=== PATIENT | male | born 1965 | race Caucasian/White ===

== ENCOUNTER 2017-12-17 11:04 | Emergency (ER) | payer BC ==
[~2017-12-17] VITALS: Ht 177.8 cm; Wt 93.8 kg
[~2017-12-17 11:04] MED LIST: NAPR-232 PO
[2017-12-17 11:40] LABS: BASOPHILS % (AUTO) 0.6 % (0-1); EOSINOPHILS # (AUTO) 0.3 X10'3 (0-0.9); EOSINOPHILS % (AUTO) 5.8 % (0-6); HEMATOCRIT 47.9 % (42.0-52.0); HEMOGLOBIN 16.4 g/dl (14.0-17.9); LYMPHOCYTES # (AUTO) 2.2 X10'3 (1.1-4.8); LYMPHOCYTES % (AUTO) 44.7 % (21-51); MEAN CORPUSCULAR HEMOGLOBIN 32.3 PG (27.0-31.0); MEAN CORPUSCULAR HGB CONC 34.3 % (33.0-36.5); MEAN CORPUSCULAR VOLUME 94.3 FL (78-98); MEAN PLATELET VOLUME 7.7 FL (7.4-10.4); MONOCYTES # (AUTO) 0.5 X10'3 (0-0.9); MONOCYTES % (AUTO) 9.5 % (2-12); NEUTROPHILS % (AUTO) 39.4 % (42-75); PLATELET COUNT 232 X10'3 (140-440); RED BLOOD COUNT 5.08 X10'6 (4.70-6.10); RED CELL DISTRIBUTION WIDTH 12.1 % (11.5-14.5)
[2017-12-17 11:57] LABS: PARTIAL THROMBOPLASTIN TIME 22 SECONDS (22-32); PROTHROMBIN TIME 10.6 SECONDS (9.0-12.0)
[2017-12-17 12:06] LABS: ALANINE AMINOTRANSFERASE 50 U/L (12-78); ALBUMIN 3.5 G/DL (3.4-5.0); ALBUMIN/GLOBULIN RATIO 1.2 (1.1-1.5); ALKALINE PHOSPHATASE 32 IU/L (46-116); ANION GAP 8 (8-16); ASPARTATE AMINO TRANSFERASE 28 U/L (10-37); BILIRUBIN,TOTAL 0.5 MG/DL (0.1-1.0); BLOOD UREA NITROGEN 16 MG/DL (7-18); BUN/CREATININE RATIO 13.1 (5.4-32.0); CALCIUM 8.9 MG/DL (8.5-10.1); CHLORIDE 106 MMOL/L (99-107); CREATININE 1.22 MG/DL (0.60-1.10); GLUCOSE 90 MG/DL (70-104); POTASSIUM 4.1 MMOL/L (3.5-5.1); SODIUM 141 MMOL/L (135-145); TOTAL CARBON DIOXIDE 27.5 MMOL/L (24-32); TOTAL PROTEIN 6.4 G/DL (6.4-8.2); eGFR 62 ML/MIN
[2017-12-17 13:01] VITALS: BP 126/65
== END 2017-12-17 13:02 | disposition home or self-care (01) ==
LOC: ER 11:04
DX: R07.89 Other chest pain (principal)
CPT/HCPCS: 36415; 71045; 80053; 84484; 85025; 85610; 85730; 93005; 99285

== ENCOUNTER 2018-06-18 05:12 | Emergency (ER) | payer BC ==
[~2018-06-18] VITALS: Ht 177.8 cm; Wt 90.9 kg
[2018-06-18 06:21] VITALS: BP 134/73
[2018-06-18] MEDS ORDERED: triamcinolone acetonide 40mg/ml inj IJ ONE (06:25)
[2018-06-18] MEDS ORDERED: ibuprofen tablet 400 MG TABLET PO ONE (06:25)
[2018-06-18] MEDS ORDERED: acetaminophen 325mg tablet PO ONE (06:25)
== END 2018-06-18 07:23 | disposition home or self-care (01) ==
LOC: ER 05:12
DX: M75.41 Impingement syndrome of right shoulder (principal); M75.51 Bursitis of right shoulder
CPT/HCPCS: 20610; 99284; J3301

== ENCOUNTER 2018-08-06 05:13 | Emergency (ER) | payer BC ==
[~2018-08-06] VITALS: Ht 177.8 cm; Wt 90.9 kg
[2018-08-06] MEDS ORDERED: aspirin 81mg tab.chew PO ONE (05:25)
[2018-08-06 05:49] LABS: BASOPHILS % (AUTO) 0.7 % (0-1); EOSINOPHILS # (AUTO) 0.2 X10'3 (0-0.9); EOSINOPHILS % (AUTO) 3.2 % (0-6); HEMATOCRIT 47.5 % (42.0-52.0); HEMOGLOBIN 16.5 g/dl (14.0-17.9); LYMPHOCYTES # (AUTO) 2.5 X10'3 (1.1-4.8); LYMPHOCYTES % (AUTO) 49.1 % (21-51); MEAN CORPUSCULAR HEMOGLOBIN 33.5 PG (27.0-31.0); MEAN CORPUSCULAR HGB CONC 34.8 % (33.0-36.5); MEAN CORPUSCULAR VOLUME 96.3 FL (78-98); MEAN PLATELET VOLUME 7.9 FL (7.4-10.4); MONOCYTES # (AUTO) 0.4 X10'3 (0-0.9); MONOCYTES % (AUTO) 8.4 % (2-12); NEUTROPHILS % (AUTO) 38.6 % (42-75); PLATELET COUNT 236 X10'3 (140-440); RED BLOOD COUNT 4.93 X10'6 (4.70-6.10); RED CELL DISTRIBUTION WIDTH 12.6 % (11.5-14.5); WHITE BLOOD COUNT 5.1 X10'3 (4.5-11.0)
[2018-08-06 06:00] LABS: ALANINE AMINOTRANSFERASE 64 U/L (12-78); ALBUMIN 3.5 G/DL (3.4-5.0); ALBUMIN/GLOBULIN RATIO 1.1 (1.1-1.5); ALKALINE PHOSPHATASE 29 IU/L (46-116); ANION GAP 9 (8-16); ASPARTATE AMINO TRANSFERASE 38 U/L (10-37); BILIRUBIN,TOTAL 0.5 MG/DL (0.1-1.0); BLOOD UREA NITROGEN 19 MG/DL (7-18); BUN/CREATININE RATIO 13.1 (5.4-32.0); CALCIUM 8.7 MG/DL (8.5-10.1); CHLORIDE 103 MMOL/L (99-107); CREATININE 1.45 MG/DL (0.60-1.10); GLUCOSE 88 MG/DL (70-104); SODIUM 138 MMOL/L (135-145); TOTAL CARBON DIOXIDE 26.4 MMOL/L (24-32); TOTAL PROTEIN 6.7 G/DL (6.4-8.2); eGFR 51 ML/MIN
[2018-08-06 06:06] LABS: D-DIMER 0.28 MG/L FEU (0-0.50); PROTHROMBIN TIME 10.5 SECONDS (9.0-12.0)
[2018-08-06 06:07] LABS: MAGNESIUM 1.6 MG/DL (1.5-2.4)
[2018-08-06 06:22] VITALS: BP 104/52
== END 2018-08-06 06:27 | disposition home or self-care (01) ==
LOC: ER 05:13
DX: R07.9 Chest pain, unspecified (principal); R06.02 Shortness of breath; R42 Dizziness and giddiness; R61 Generalized hyperhidrosis
CPT/HCPCS: 36415; 71045; 80053; 83735; 83880; 84484; 85025; 85379; 85610; 93005; 99285

== ENCOUNTER 2019-01-18 13:52 | Emergency (ER) | payer BC ==
[~2019-01-18] VITALS: Ht 177.8 cm; Wt 90.9 kg
[2019-01-18 14:06] VITALS: BP 115/72
--- NOTE | 2019-01-18 15:04 | NUR ---
Attempted to irrigate ear with water/hydrogen peroxide. Unsuccessful at relieving impaction. PA aware.
== END 2019-01-18 15:05 | disposition home or self-care (01) ==
LOC: ER 13:52
DX: H61.22 Impacted cerumen, left ear (principal); Z79.899 Other long term (current) drug therapy
CPT/HCPCS: 69209; 99282

== ENCOUNTER 2019-03-30 06:42 | Emergency (ER) | payer BC, MEDICARE ==
[~2019-03-30] VITALS: Ht 177.8 cm; Wt 93.4 kg
[2019-03-30 06:48] VITALS: BP 121/80
[2019-03-30] MEDS ORDERED: ketorolac trometh inj. 60 MG/2 ML VIAL IM ONE (07:10)
== END 2019-03-30 07:31 | disposition home or self-care (01) ==
LOC: ER 06:43
DX: M25.511 Pain in right shoulder (principal); Z79.899 Other long term (current) drug therapy; X58.XXXA Exposure to other specified factors, initial encounter; Y93.89 Activity, other specified; Y92.89 Other specified places as the place of occurrence of the external cause; Y99.8 Other external cause status
CPT/HCPCS: 96372; 99283; J1885

== ENCOUNTER 2023-06-25 18:54 | Inpatient (IN) | payer MEDICAID ==
[~2023-06-25] VITALS: Ht 177.8 cm; Wt 76.8 kg
[2023-06-26 10:15] VITALS: BP 101/62; PULSE 73; RESP 17; TEMP 98.5; O2SAT 97
[2023-06-26] MEDS ORDERED: magnesium hydroxide 30ml (MOM) UD suspension PO PRN (10:30)
[2023-06-26] MEDS ORDERED: acetaminophen 325mg tablet PO PRN ×2 (10:30)
[2023-06-26] MEDS ORDERED: mag hydrox/Alum hydrox/simeth 30ml oral suspension PO PRN (10:30)
[2023-06-26] MEDS ORDERED: NICOTINE POLACRILEX 2 MG LOZENGE BC PRN (10:30)
[2023-06-26] MEDS ORDERED: loperamide 2mg capsule PO PRN (10:30)
[2023-06-26] MEDS ORDERED: METO-395 PO (16:23)
[2023-06-26] MEDS ORDERED: FOLI1TAB27 PO (16:23)
[2023-06-26] MEDS ORDERED: AMI200T PO (16:23)
[2023-06-26] MEDS ORDERED: FURO40TA4 PO (16:23)
[2023-06-26] MEDS ORDERED: APIX5TAB3 PO (16:23)
[2023-06-26] MEDS ORDERED: ATOR10TA70 PO (16:23)
--- NOTE | 2023-06-26 16:31 | NUR ---
ADMIT NOTE Patient was BIB EMS to [facility] for suicide attempt. Pt overdosed on 50 tablets of Benadryl. Pt was positive for ETOH, otherwise negative. Pt arrived on unit via wheelchair at 1013. Pt presented with depressed affect. Pt was compliant with admit process. 2 Nurse Skin assessment completed without issue. Pt came in with an indwelling catheter for urine retention r/t overdose. Pt endorses depression, but denies all other psychotic symptoms. Pt showered then attended morning group. Pts left him about 6 months ago, causing overwhelming feelings of unworthiness. Pt states we both are working on ourselves. I need to work on liking myself. Unsure of prior living arrangements, pt [place] know live [place] trail. Pt reports multiple issues with trailer including the AC not working. I just became overwhelmed and thought Ill meet my on the other side. Schaffer catheter was removed at 1437. Pt as of this writing has voided 800 mL of urine.
[2023-06-26 19:50] VITALS: BP 111/62; PULSE 51; RESP 17; TEMP 98; O2SAT 94
[2023-06-26] MEDS: amiodarone 200mg tablet PO SCH (20:39)
[2023-06-26] MEDS: atorvastatin 10mg tablet PO SCH (20:39)
[2023-06-26] MEDS: apixaban 5mg tablet PO SCH (20:39)
[2023-06-26] MEDS ORDERED: LORazepam 0.5 MG tablet PO ONE (21:00)
[2023-06-26] MEDS ORDERED: Melatonin 3mg tablet PO ONE (21:05)
--- NOTE | 2023-06-27 03:38 | NUR ---
Nursing Progress Note: Problem: Patient was BIB EMS to [facility] for suicide attempt. Pt overdosed on 50 tablets of Benadryl. Pt was positive for ETOH, otherwise negative. Pt arrived on unit via wheelchair at 1013. Pt presented with depressed affect. Pt came in with an indwelling catheter for urine retention r/t overdose. Pt endorses depression, but denies all other psychotic symptoms. I just became overwhelmed and thought Ill meet my on the other side. Schaffer catheter was removed at 1437. Pt as of this writing has voided 800 mL of urine. Intervention: Encouraged participation on the unit and maintain Q 15min safety checks. Monitor patient behavior. Administer treatment as prescribed. Response: upon arrival patient was seen in bed with eyes closed but was easily aroused. Patient did not really want to talk. He made it clear he just wants his medications. This nurse had to call MD to get order for Ativan for anxiety, and Melatonin for sleep. Patient states he takes five 10MG Melatonin. MD recommended Trazadone but patient politely declined due to it being an anti-depressant, and he use to take it 30 years ago. Patient got very inpatient asking over and over again until this nurse could get it for him. Patient denies any and all psychotic symptoms. Patient states LBM 06/26. Plan: Patient will remain free from self-harm per shift. Patient will return to baseline functioning by discharge. Patient medical condition will be stable prior to discharge.
[2023-06-27 07:13] VITALS: BP 104/63; PULSE 56; RESP 16; TEMP 97.8; O2SAT 99
[2023-06-27] MEDS ORDERED: nicotine 21mg patch - 24 hr TD SCH (08:00)
[2023-06-27 08:52] LABS: HEMOGLOBIN A1C 4.9 % (4.5-6.2)
[2023-06-27] MEDS: amiodarone 200mg tablet PO SCH ×2 (09:04→20:07)
[2023-06-27] MEDS: apixaban 5mg tablet PO SCH ×2 (09:05→20:07)
[2023-06-27] MEDS: folic acid 1mg tablet PO SCH (09:08)
[2023-06-27] MEDS: furosemide 40mg tablet PO SCH (09:08)
[2023-06-27] MEDS: metoprolol succinate 25mg (24-HOUR) SR. Tablet PO SCH (09:08)
[2023-06-27 09:09] VITALS: BP 110/80; PULSE 64
[2023-06-27 09:43] LABS: CHOL/HDL RATIO 4.2 (0.00-4.99); CHOLESTEROL 173 MG/DL (0-200); HDL CHOLESTEROL 41 MG/DL (35-60); LDL CHOLESTEROL 114 MG/DL (50-100); TRIGLYCERIDES 50 MG/DL (20-135)
--- NOTE | 2023-06-27 13:34 | NUR ---
NURSING PROGRESS NOTE Problem: Patient was BIB EMS to [facility] for suicide attempt. Pt overdosed on 50 tablets of Benadryl. Pt was positive for ETOH, otherwise negative. Pt arrived on unit via wheelchair at 1013. Pt presented with depressed affect. Pt came in with an indwelling catheter for urine retention r/t overdose. Pt endorses depression, but denies all other psychotic symptoms. I just became overwhelmed and thought Ill meet my on the other side. Schaffer catheter was removed at 1437. Pt as of this writing has voided 800 mL of urine. Intervention: One to one to assess SI and thoughts, medication administration, monitoring/education, encouraged participation in unit milieu, including group, monitored pt behavior and intervened PRN, Q15 min safety checks. Response: Received patient resting quietly at shift change. Pt reports not sleeping well, pt prefers Melatonin and not Trazadone. Pt denies SI/HI, A/VH. Pt states "I just need to find a job and get my life going again." Encouraged patient o consider Naltrexone to help with his ETOH cravings. Pt minimizes his heart condition, feels he doesn't need medication for this. Pt states r/t his Xarelto "I don't want to look like an old man with bruises all over my arms." Pt is visible on unit, noted playing card game with peers. Pt watching T.V, tells song writer he thinks "I'm being discharged tomorrow." Pt's hold expires tomorrow at 1442. Plan: Patient will remain free from self-harm per shift. Patient will return to baseline functioning by discharge. Patient medical condition will be stable prior to discharge.
[2023-06-27 19:00] VITALS: BP 109/62; PULSE 60; RESP 14; TEMP 96.8; O2SAT 99
[2023-06-27] MEDS ORDERED: LORazepam 0.5 MG tablet PO STA (19:47)
[2023-06-27] MEDS: atorvastatin 10mg tablet PO SCH (20:06)
[2023-06-27] MEDS ORDERED: Melatonin 3mg tablet PO SCH (21:00)
--- NOTE | 2023-06-28 04:21 | NUR ---
Nursing Progress Note: Eliu Problem: Patient was BIB EMS to [facility] for suicide attempt. Pt overdosed on 50 tablets of Benadryl. Pt was positive for ETOH, otherwise negative. Pt arrived on unit via wheelchair at 1013. Pt presented with depressed affect. Pt came in with an indwelling catheter for urine retention r/t overdose. Pt endorses depression, but denies all other psychotic symptoms. I just became overwhelmed and thought Ill meet my on the other side. Schaffer catheter was removed at 1437. Pt as of this writing has voided 800 mL of urine. Intervention: One to one to assess SI and thoughts, medication administration, monitoring/education, encouraged participation in unit milieu, including group, monitored pt behavior and intervened PRN, Q15 min safety checks. Response: upon shift change patient observed in TV room finishing up dinner. During brief 1:1, patient denied all psychosis symptoms. Patient ate in the TV room for all meals. Patient participated in HS snack. Patient approached nurses station concerned about bedtime medications. Patient request Ativan and melatonin. Patient expressed that he received a one-time dose of both the night before and said he slept very good. Patient states he is to leave tomorrow since his hold is up. Patient says he is ready to get his life back together and to help son work on his house. MD was called for the medications, and it was successful which patient was pleased about. Patient currently in bed with eyes closed. No obvious signs of distress to note. patient co staff doing Q15's, light sleeper. Plan: Patient will remain free from self-harm per shift. Patient will return to baseline functioning by discharge. Patient medical condition will be stable prior to discharge.
[2023-06-28 07:48] VITALS: BP 95/55; PULSE 58; RESP 12; TEMP 97.6; O2SAT 96
[2023-06-28] MEDS: furosemide 40mg tablet PO SCH (08:00)
[2023-06-28] MEDS: metoprolol succinate 25mg (24-HOUR) SR. Tablet PO SCH (08:00)
[2023-06-28] MEDS: apixaban 5mg tablet PO SCH (08:04)
[2023-06-28] MEDS: folic acid 1mg tablet PO SCH (08:04)
[2023-06-28] MEDS: amiodarone 200mg tablet PO SCH (08:04)
--- NOTE | 2023-06-28 12:47 | NUR ---
DISCHARGE NOTE Patient was discharged from unit at 1238. Pt was escorted to lobby with proposal writer and security. Pt left with all personal belongings. Pt was A&Ox4. Pt was calm and cooperative. Pt will follow up with his granulator tender at [facility]. Pt reports he was counseling through him until about 2 months ago. Pt also reported he will start attending [facility]. Pt is reluctant to take any of his heart medications and was educated on the importance of continuing these medications. Pt had his son drop off his keys and will be driving back to his home.
== END 2023-06-28 14:38 | disposition home or self-care (01) | DRG 751 ==
LOC: ADULT MH 06-26 10:23
PROVIDERS: ADMIT Psychiatry & Neurology Psychiatry; ATTEND Psychiatry & Neurology Psychiatry
DX: F33.1 Major depressive disorder, recurrent, moderate (principal); I42.9 Cardiomyopathy, unspecified; I50.9 Heart failure, unspecified; F10.10 Alcohol abuse, uncomplicated; F41.9 Anxiety disorder, unspecified; Z60.2 Problems related to living alone; F90.9 Attention-deficit hyperactivity disorder, unspecified type; I48.20 Chronic atrial fibrillation, unspecified; Z91.51 Personal history of suicidal behavior; Z80.3 Family history of malignant neoplasm of breast; Z82.49 Family history of ischemic heart disease and other diseases of the circulatory system; T50.902A Poisoning by unspecified drugs, medicaments and biological substances, intentional self-harm, initial encounter
CPT/HCPCS: 36415; 80061; 83036; 87081

== ENCOUNTER 2023-07-06 09:17 | Inpatient (IN) | payer MEDICAID ==
[~2023-07-06] VITALS: Ht 177.8 cm; Wt 67.8 kg
[~2023-07-06 09:17] MED LIST changes: +AMI200T PO; +APIX5TAB3 PO; +ATOR10TA70 PO; +FOLI1TAB27 PO; +FURO40TA4 PO; +METO-395 PO
--- NOTE | 2023-07-06 09:28 | NUR ---
PULSE 148 NURSE NOTIFIED
--- NOTE | 2023-07-06 09:29 | NUR ---
Poison control notified at 929 for benadryl overdose of 5000mg per Dr. Cowan. Addendum: 07/06/23 at 33 by FRANCISCO Poison control recommended: EKG now, repeat in 4-6 hours, anti-seizure medications if needed, urinary cath for output, labs, tylenol, ASA, ETOH, UDS. Medical monitor until sx resolve.
[2023-07-06] MEDS ORDERED: normal saline 1000ML IV soln IVB ONE ×2 (09:40→21:20)
[2023-07-06 10:28] LABS: BASOPHILS # (AUTO) 0.1 X10'3 (0-0.2); BASOPHILS % (AUTO) 0.5 % (0-1); EOSINOPHILS % (AUTO) 0.2 % (0-6); HEMATOCRIT 47.9 % (42.0-52.0); HEMOGLOBIN 16.6 g/dl (14.0-17.9); LYMPHOCYTES # (AUTO) 1.7 X10'3 (1.1-4.8); LYMPHOCYTES % (AUTO) 12.3 % (21-51); MEAN CORPUSCULAR HEMOGLOBIN 33.4 PG (27.0-31.0); MEAN CORPUSCULAR HGB CONC 34.7 g/dL (33.0-36.5); MEAN CORPUSCULAR VOLUME 96.4 FL (78-98); MEAN PLATELET VOLUME 8.4 FL (7.4-10.4); MONOCYTES # (AUTO) 1.1 X10'3 (0-0.9); MONOCYTES % (AUTO) 7.7 % (2-12); NEUTROPHILS % (AUTO) 79.3 % (42-75); PLATELET COUNT 179 X10'3 (140-440); RED BLOOD COUNT 4.96 X10'6 (4.70-6.10); RED CELL DISTRIBUTION WIDTH 13.1 % (11.5-14.5); WHITE BLOOD COUNT 13.9 X10'3 (4.5-11.0)
[2023-07-06 10:30] LABS: BILIRUBIN,URINE NEGATIVE (Neg); CLARITY,URINE CLEAR (Clear); GLUCOSE, URINE NEGATIVE (Neg); KETONES,URINE 15 mg/dl (Neg); LEUKOCYTE ESTERASE ,URINE NEGATIVE (Neg); NITRITES, URINE NEGATIVE (Neg); OCCULT BLOOD,URINE MODERATE (Neg); PH,URINE 5.5 (4.8-8.0); PROTEIN,URINE 100 mg/dl (Neg); UROBILINOGEN,URINE 0.2 E.U/dL (0.2-1.0)
[2023-07-06 10:33] LABS: COLOR,URINE DARK YELLOW (Yellow); UA COLLECTION TYPE CLN CATCH MIDSTREAM
[2023-07-06 10:37] LABS: BACTERIA,URINE FEW /HPF (Neg); MUCUS STRANDS NONE SEEN /LPF (Neg); RBC,URINE NONE SEEN /HPF (0-2); SQUAMOUS EPITHELIAL CELL,UR FEW /LPF (FEW); WBC,URINE 0-4 /HPF (0-4)
[2023-07-06 10:38] LABS: FINE GRANULAR CAST 0-3 /LPF (NEGATIVE)
--- NOTE | 2023-07-06 10:40 | NUR ---
PT URINATED 150 CC AND RN BLADDER SCAN PT WITH RESULT OF > 1469. RN NOTIFIED DR VILLEDA AND DR CHRISTIANA MOODY
[2023-07-06 10:47] LABS: ALANINE AMINOTRANSFERASE 129 U/L (12-78); ALBUMIN 3.8 G/DL (3.4-5.0); ALBUMIN/GLOBULIN RATIO 1.2 (1.1-1.5); ALKALINE PHOSPHATASE 43 IU/L (46-116); ANION GAP 7 (8-16); ASPARTATE AMINO TRANSFERASE 252 U/L (10-37); BILIRUBIN,TOTAL 1.2 MG/DL (0.1-1.0); BLOOD UREA NITROGEN 39 MG/DL (7-18); BUN/CREATININE RATIO 28.7 (10.0-20.0); CALCIUM 9.2 MG/DL (8.5-10.1); CHLORIDE 105 MMOL/L (99-107); CREATININE 1.36 MG/DL (0.60-1.10); GLUCOSE 101 MG/DL (70-104); POTASSIUM 4.5 MMOL/L (3.5-5.1); SODIUM 140 MMOL/L (135-145); TOTAL CARBON DIOXIDE 28.1 MMOL/L (24-32); TOTAL PROTEIN 7.1 G/DL (6.4-8.2); eCRCL 57 ML/MIN; eGFR 54 ML/MIN
[2023-07-06 10:51] LABS: URINE AMPHETAMINE SCREEN NEGATIVE (Neg); URINE BARBITUATE SCREEN NEGATIVE (Neg); URINE BENZODIAZEPINES SCREEN NEGATIVE (Neg); URINE CANNABINOID SCREEN NEGATIVE (Neg); URINE COCAINE SCREEN NEGATIVE (Neg); URINE METHADONE SCREEN NEGATIVE (Neg); URINE OPIATE SCREEN NEGATIVE (Neg); URINE PHENCYCLIDINE SCREEN NEGATIVE (Neg)
[2023-07-06 10:51] LABS: ETHANOL < 10 MG/DL (<10); LIPASE 72 U/L (73-393); THYROID STIMULATING HORMONE 1.72 ulU/ml (0.34-4.50)
[2023-07-06 10:52] LABS: ACETAMINOPHEN < 2.0 UG/ML (10-30)
[2023-07-06 15:56] LABS: ALANINE AMINOTRANSFERASE 115 U/L (12-78); ALBUMIN 3.4 G/DL (3.4-5.0); ALBUMIN/GLOBULIN RATIO 1.1 (1.1-1.5); ALKALINE PHOSPHATASE 38 IU/L (46-116); ANION GAP 6 (8-16); ASPARTATE AMINO TRANSFERASE 213 U/L (10-37); BILIRUBIN,TOTAL 1.2 MG/DL (0.1-1.0); BLOOD UREA NITROGEN 32 MG/DL (7-18); BUN/CREATININE RATIO 28.3 (10.0-20.0); CALCIUM 8.8 MG/DL (8.5-10.1); CHLORIDE 107 MMOL/L (99-107); CREATININE 1.13 MG/DL (0.60-1.10); GLUCOSE 90 MG/DL (70-104); POTASSIUM 4.2 MMOL/L (3.5-5.1); SODIUM 140 MMOL/L (135-145); TOTAL CARBON DIOXIDE 27.1 MMOL/L (24-32); TOTAL PROTEIN 6.4 G/DL (6.4-8.2); eCRCL 68 ML/MIN; eGFR 67 ML/MIN
--- NOTE | 2023-07-06 18:08 | NUR ---
RN SPOKE WITH JULIO CESAR AT POISON CONTROL. POISON CONTROL WAS NOTIFIED THAT PT AST IS 213 AND ALT IS 115 AND VS DOC AT 1808. PER POISON CONTROL THEY WILL SIGN OFF ON THE PT AND NO NEED TO CONTACT THEM AGAIN UNLESS THERE IS A CHG IN PT CONDITION.
--- NOTE | 2023-07-06 18:33 | NUR ---
PACKET SENT TO [facility]
[2023-07-06] MEDS ORDERED: metoprolol tartrate 50mg tablet PO ONE (20:15)
--- NOTE | 2023-07-06 21:17 | NUR ---
PT HR 150S SVT THEN CONVERTS TO NSR AT 95 THEN UP TO 140S AFIB THEN 100S AFIB. DR OLIVARES NOTIFED. RECIEVED VERBAL ORDERS FOR 1L BOLUS NS AND CBC, CMP, MG. REPEAT EKG COMPLETED WELL. PT DENIES CP, ONLY COMPLAINT IS A COUGH.
[2023-07-06] MEDS ORDERED: magnesium 2GM in 50ml NS 50 ML IV ONE (21:20)
[2023-07-06 21:26] LABS: BASOPHILS % (AUTO) 0.5 % (0-1); EOSINOPHILS # (AUTO) 0.1 X10'3 (0-0.9); HEMATOCRIT 45.7 % (42.0-52.0); HEMOGLOBIN 15.6 g/dl (14.0-17.9); LYMPHOCYTES # (AUTO) 1.9 X10'3 (1.1-4.8); LYMPHOCYTES % (AUTO) 18.8 % (21-51); MEAN CORPUSCULAR HEMOGLOBIN 33.3 PG (27.0-31.0); MEAN CORPUSCULAR HGB CONC 34.1 g/dL (33.0-36.5); MEAN CORPUSCULAR VOLUME 97.6 FL (78-98); MEAN PLATELET VOLUME 8.5 FL (7.4-10.4); MONOCYTES # (AUTO) 0.6 X10'3 (0-0.9); MONOCYTES % (AUTO) 6.3 % (2-12); NEUTROPHILS # (AUTO) 7.4 X10'3 (1.8-7.7); NEUTROPHILS % (AUTO) 73.4 % (42-75); PLATELET COUNT 162 X10'3 (140-440); RED BLOOD COUNT 4.68 X10'6 (4.70-6.10); RED CELL DISTRIBUTION WIDTH 13.3 % (11.5-14.5)
[2023-07-06 21:38] LABS: ALANINE AMINOTRANSFERASE 109 U/L (12-78); ALBUMIN 3.1 G/DL (3.4-5.0); ALKALINE PHOSPHATASE 38 IU/L (46-116); ANION GAP 8 (8-16); ASPARTATE AMINO TRANSFERASE 186 U/L (10-37); BILIRUBIN,TOTAL 1.2 MG/DL (0.1-1.0); BLOOD UREA NITROGEN 30 MG/DL (7-18); CALCIUM 8.6 MG/DL (8.5-10.1); CHLORIDE 107 MMOL/L (99-107); GLUCOSE 159 MG/DL (70-104); MAGNESIUM 1.8 MG/DL (1.5-2.4); POTASSIUM 3.8 MMOL/L (3.5-5.1); SODIUM 140 MMOL/L (135-145); TOTAL CARBON DIOXIDE 25.3 MMOL/L (24-32); TOTAL PROTEIN 6.1 G/DL (6.4-8.2); eCRCL 64 ML/MIN; eGFR 62 ML/MIN
[2023-07-07] VITALS (8 sets, daily range): BP systolic 89–114; BP diastolic 43–78; PULSE 61–153; RESP 16–18; TEMP 97.9–99.1; O2SAT 93–97
[2023-07-07] MEDS ORDERED: ipratropium/albuterol 3ml nebule NEB PRN (01:10)
[2023-07-07] MEDS ORDERED: morphine 2 MG/ML inj. syringe IV PRN ×2 (01:10)
[2023-07-07] MEDS ORDERED: HYDROcodone/acetaminophen 5mg/325mg tablet PO PRN (01:10)
[2023-07-07] MEDS ORDERED: acetaminophen 325mg tablet PO PRN ×2 (01:10)
[2023-07-07] MEDS ORDERED: magnesium hydroxide 30ml (MOM) UD suspension PO PRN (01:10)
[2023-07-07] MEDS ORDERED: ondansetron/PF 4mg/2ml inj IV PRN (01:10)
[2023-07-07] MEDS ORDERED: acetaminophen 650mg rectal suppository RC PRN (01:10)
[2023-07-07] MEDS ORDERED: ondansetron 4mg rapidly disintigrating tab PO PRN (01:10)
[2023-07-07] MEDS ORDERED: diphenhydrAMINE 25mg capsule PO PRN (01:10)
[2023-07-07] MEDS ORDERED: bisacodyl 10mg suppository rectal RC PRN (01:10)
[2023-07-07] MEDS ORDERED: mag hydrox/Alum hydrox/simeth 30ml oral suspension PO PRN (01:10)
[2023-07-07] MEDS ORDERED: metoclopramide 5 mg/ml inj IV PRN (01:10)
[2023-07-07] MEDS ORDERED: diphenhydrAMINE 50 mg/ml inj IV PRN (01:10)
[2023-07-07] MEDS: normal saline 1000ml 1,000 ML IV SCH ×3 (01:39→15:33)
[2023-07-07 02:39] LABS: APTT 26 SECONDS (22-32); D-DIMER 8.62 MG/L FEU (0-0.50)
[2023-07-07 02:41] LABS: PHOSPHORUS 2.5 MG/DL (2.3-4.5); PRO BRAIN NATRIURETIC PEPTIDE 351 PG/ML (0-125)
[2023-07-07 03:11] LABS: HEMOGLOBIN A1C 5.2 % (4.5-6.2)
[2023-07-07 03:32] LABS: PROTHROMBIN TIME 10.9 SECONDS (9.0-12.0)
[2023-07-07] MEDS: pantoprazole 40mg Tablet.DR PO SCH (08:27)
[2023-07-07] MEDS: magnesium oxide 400mg tablet PO SCH ×2 (08:27→19:57)
[2023-07-07] MEDS: docusate sod 100mg capsule PO SCH ×2 (08:27→19:57)
[2023-07-07] MEDS: HYDROcodone/acetaminophen 10/325mg tab PO PRN ×3 (08:27→16:53)
--- NOTE | 2023-07-07 08:31 | NUR ---
PAGER ID: [phone] MESSAGE: OLAF PIERRE, [facility], 0008. RE: [phone]. PT. HAS A SORE THROAT. NOTHING ON EMAR. FYI. THANKS.
[2023-07-07] MEDS ORDERED: benzocaine/menthol oral lozeng 1 EACH BOX MM PRN (10:25)
[2023-07-07 11:31] LABS: BASOPHILS # (AUTO) 0.1 X10'3 (0-0.2); BASOPHILS % (AUTO) 0.6 % (0-1); EOSINOPHILS # (AUTO) 0.2 X10'3 (0-0.9); EOSINOPHILS % (AUTO) 1.8 % (0-6); HEMATOCRIT 43.7 % (42.0-52.0); HEMOGLOBIN 14.8 g/dl (14.0-17.9); LYMPHOCYTES # (AUTO) 1.7 X10'3 (1.1-4.8); MEAN CORPUSCULAR HEMOGLOBIN 33.3 PG (27.0-31.0); MEAN CORPUSCULAR VOLUME 98.1 FL (78-98); MONOCYTES # (AUTO) 0.8 X10'3 (0-0.9); MONOCYTES % (AUTO) 8.2 % (2-12); NEUTROPHILS # (AUTO) 6.6 X10'3 (1.8-7.7); NEUTROPHILS % (AUTO) 71.4 % (42-75); PLATELET COUNT 160 X10'3 (140-440); RED BLOOD COUNT 4.45 X10'6 (4.70-6.10); RED CELL DISTRIBUTION WIDTH 13.1 % (11.5-14.5); WHITE BLOOD COUNT 9.2 X10'3 (4.5-11.0)
[2023-07-07 11:58] LABS: ALANINE AMINOTRANSFERASE 103 U/L (12-78); ALKALINE PHOSPHATASE 35 IU/L (46-116); ASPARTATE AMINO TRANSFERASE 165 U/L (10-37); BILIRUBIN,DIRECT 0.3 MG/DL (0-0.3); BILIRUBIN,TOTAL 1.1 MG/DL (0.1-1.0); TOTAL PROTEIN 5.9 G/DL (6.4-8.2)
[2023-07-07] MEDS ORDERED: metoprolol tartrate 50mg tablet PO SCH (12:00)
[2023-07-07 14:49] LABS: ALANINE AMINOTRANSFERASE 91 U/L (12-78); ALBUMIN 2.6 G/DL (3.4-5.0); ALBUMIN/GLOBULIN RATIO 0.9 (1.1-1.5); ALKALINE PHOSPHATASE 35 IU/L (46-116); ASPARTATE AMINO TRANSFERASE 124 U/L (10-37); BILIRUBIN,DIRECT 0.2 MG/DL (0-0.3); BILIRUBIN,TOTAL 0.7 MG/DL (0.1-1.0); TOTAL PROTEIN 5.5 G/DL (6.4-8.2)
[2023-07-07] MEDS: HALLS - SOOTHE MENTHOL 1.8 MG cough drop LOZENGE MM PRN (16:53)
[2023-07-07] MEDS ORDERED: FLO0.4C PO (17:13)
[2023-07-07] MEDS ORDERED: ESCI-8 PO (17:13)
[2023-07-07] MEDS ORDERED: METO25CA PO (17:13)
--- NOTE | 2023-07-07 18:30 | NUR ---
Patient in room PCU 3027. I have received report from OLAF Guy and had the opportunity to ask questions and assume patient care.
--- NOTE | 2023-07-07 18:32 | NUR ---
Problems reprioritized. Patient report given TO MERLY BABIN, questions answered & plan of care reviewed with .
[2023-07-07 18:57] LABS: ALANINE AMINOTRANSFERASE 89 U/L (12-78); ALBUMIN 2.6 G/DL (3.4-5.0); ALBUMIN/GLOBULIN RATIO 0.9 (1.1-1.5); ALKALINE PHOSPHATASE 34 IU/L (46-116); ASPARTATE AMINO TRANSFERASE 113 U/L (10-37); BILIRUBIN,DIRECT 0.2 MG/DL (0-0.3); BILIRUBIN,TOTAL 0.5 MG/DL (0.1-1.0); TOTAL PROTEIN 5.5 G/DL (6.4-8.2)
[2023-07-07] MEDS: apixaban 5mg tablet PO SCH (19:57)
[2023-07-07] MEDS: amiodarone 200mg tablet PO SCH (19:57)
[2023-07-07] MEDS ORDERED: temazepam 15mg capsule PO PRN (21:00)
[2023-07-07 21:45] LABS: ALANINE AMINOTRANSFERASE 82 U/L (12-78); ALBUMIN 2.5 G/DL (3.4-5.0); ALBUMIN/GLOBULIN RATIO 0.9 (1.1-1.5); ALKALINE PHOSPHATASE 33 IU/L (46-116); ASPARTATE AMINO TRANSFERASE 106 U/L (10-37); BILIRUBIN,DIRECT 0.2 MG/DL (0-0.3); BILIRUBIN,TOTAL 0.5 MG/DL (0.1-1.0); TOTAL PROTEIN 5.3 G/DL (6.4-8.2)
[2023-07-08] VITALS (9 sets, daily range): BP systolic 95–112; BP diastolic 55–69; PULSE 62–88; RESP 14–18; TEMP 97.4–98.6; O2SAT 95–99
[2023-07-08] MEDS: HYDROcodone/acetaminophen 10/325mg tab PO PRN ×4 (01:53→20:17)
[2023-07-08 02:39] LABS: BASOPHILS % (AUTO) 0.5 % (0-1); EOSINOPHILS # (AUTO) 0.3 X10'3 (0-0.9); EOSINOPHILS % (AUTO) 5.1 % (0-6); HEMATOCRIT 41.2 % (42.0-52.0); LYMPHOCYTES # (AUTO) 1.4 X10'3 (1.1-4.8); LYMPHOCYTES % (AUTO) 22.9 % (21-51); MEAN CORPUSCULAR HEMOGLOBIN 33.4 PG (27.0-31.0); MEAN CORPUSCULAR VOLUME 98.2 FL (78-98); MEAN PLATELET VOLUME 9.1 FL (7.4-10.4); MONOCYTES # (AUTO) 0.5 X10'3 (0-0.9); MONOCYTES % (AUTO) 8.8 % (2-12); NEUTROPHILS # (AUTO) 3.8 X10'3 (1.8-7.7); NEUTROPHILS % (AUTO) 62.7 % (42-75); PLATELET COUNT 144 X10'3 (140-440); RED CELL DISTRIBUTION WIDTH 13.1 % (11.5-14.5); WHITE BLOOD COUNT 6.1 X10'3 (4.5-11.0)
[2023-07-08 02:52] LABS: ALANINE AMINOTRANSFERASE 81 U/L (12-78); ALBUMIN 2.5 G/DL (3.4-5.0); ALBUMIN/GLOBULIN RATIO 0.9 (1.1-1.5); ALKALINE PHOSPHATASE 32 IU/L (46-116); ASPARTATE AMINO TRANSFERASE 94 U/L (10-37); BILIRUBIN,DIRECT 0.2 MG/DL (0-0.3); BILIRUBIN,TOTAL 0.5 MG/DL (0.1-1.0); CHOL/HDL RATIO 3.8 (0.00-4.99); CHOLESTEROL 149 MG/DL (0-200); HDL CHOLESTEROL 39 MG/DL (35-60); LDL CHOLESTEROL 94 MG/DL (50-100); TOTAL PROTEIN 5.4 G/DL (6.4-8.2); TRIGLYCERIDES 56 MG/DL (20-135)
[2023-07-08] MEDS: normal saline 1000ml 1,000 ML IV SCH ×4 (05:26→17:30)
--- NOTE | 2023-07-08 06:28 | NUR ---
Problems reprioritized. Patient report given, questions answered & plan of care reviewed with OLAF Verdugo.
--- NOTE | 2023-07-08 06:32 | NUR ---
Patient in room PCU 3027. I have received report from OLAF Mckeon and had the opportunity to ask questions and assume patient care.
[2023-07-08] MEDS: ESCITALOPRAM OXALATE 5 MG TABLET PO SCH (07:42)
[2023-07-08] MEDS: pantoprazole 40mg Tablet.DR PO SCH (07:42)
[2023-07-08] MEDS: amiodarone 200mg tablet PO SCH ×2 (07:42→19:19)
[2023-07-08] MEDS: HALLS - SOOTHE MENTHOL 1.8 MG cough drop LOZENGE MM PRN ×3 (07:43→20:17)
[2023-07-08] MEDS: tamsulosin 0.4mg capsule PO SCH (07:43)
[2023-07-08] MEDS: magnesium oxide 400mg tablet PO SCH ×2 (07:43→19:19)
[2023-07-08] MEDS: docusate sod 100mg capsule PO SCH ×2 (07:43→19:19)
[2023-07-08] MEDS: apixaban 5mg tablet PO SCH ×2 (07:43→19:19)
[2023-07-08] MEDS ORDERED: metoprolol succinate 25mg (24-HOUR) SR. Tablet PO SCH ×2 (08:00→08:11)
[2023-07-08 08:04] LABS: ALANINE AMINOTRANSFERASE 84 U/L (12-78); ALBUMIN 2.5 G/DL (3.4-5.0); ALBUMIN/GLOBULIN RATIO 0.9 (1.1-1.5); ALKALINE PHOSPHATASE 35 IU/L (46-116); ASPARTATE AMINO TRANSFERASE 90 U/L (10-37); BILIRUBIN,TOTAL 0.6 MG/DL (0.1-1.0); TOTAL PROTEIN 5.3 G/DL (6.4-8.2)
[2023-07-08 08:10] LABS: BILIRUBIN,DIRECT 0.1 MG/DL (0-0.3)
[2023-07-08] MEDS: metoprolol succinate 25mg (24-HOUR) SR. Tablet PO SCH (09:13)
[2023-07-08 09:53] LABS: ALANINE AMINOTRANSFERASE 81 U/L (12-78); ALBUMIN 2.5 G/DL (3.4-5.0); ALBUMIN/GLOBULIN RATIO 0.8 (1.1-1.5); ALKALINE PHOSPHATASE 31 IU/L (46-116); ASPARTATE AMINO TRANSFERASE 93 U/L (10-37); BILIRUBIN,DIRECT 0.2 MG/DL (0-0.3); BILIRUBIN,TOTAL 0.6 MG/DL (0.1-1.0); TOTAL PROTEIN 5.5 G/DL (6.4-8.2)
--- NOTE | 2023-07-08 11:23 | NUR ---
Karime salgado. Patient tolerated well. Patient states "they tried it before and I couldn't pee because of the benadryl." Oral fluid intake encouraged as well as ambulating with sitter.
--- NOTE | 2023-07-08 15:03 | NUR ---
PAGER ID: [phone] MESSAGE: [id number]- Ivory iRvera- pt able to void 100ml but pvr is 418ml. pt denies bladder discomfort and wants to wait to straight cath.- Lucina [phone]
--- NOTE | 2023-07-08 15:05 | NUR ---
patient encouraged to ambulate. patient ambulated 600ft and then able to void another 225ml.
--- NOTE | 2023-07-08 15:46 | NUR ---
Problems reprioritized. Patient report given, questions answered & plan of care reviewed with OLAF Cummings.
[2023-07-08 15:51] LABS: ALANINE AMINOTRANSFERASE 87 U/L (12-78); ALBUMIN 2.6 G/DL (3.4-5.0); ALBUMIN/GLOBULIN RATIO 0.8 (1.1-1.5); ALKALINE PHOSPHATASE 37 IU/L (46-116); ASPARTATE AMINO TRANSFERASE 90 U/L (10-37); BILIRUBIN,DIRECT 0.2 MG/DL (0-0.3); BILIRUBIN,TOTAL 0.5 MG/DL (0.1-1.0); TOTAL PROTEIN 5.7 G/DL (6.4-8.2)
--- NOTE | 2023-07-08 18:17 | NUR ---
Problems reprioritized. Patient report given, questions answered & plan of care reviewed with Linda. Addendum: 07/08/23 at 1818 by Emiliano Rubin RN Amended: Links added.
--- NOTE | 2023-07-08 18:28 | NUR ---
Patient in room PCU 3027. I have received report from OLAF Cummings and had the opportunity to ask questions and assume patient care.
[2023-07-08 18:58] LABS: ALANINE AMINOTRANSFERASE 85 U/L (12-78); ALBUMIN 2.5 G/DL (3.4-5.0); ALBUMIN/GLOBULIN RATIO 0.8 (1.1-1.5); ALKALINE PHOSPHATASE 35 IU/L (46-116); ASPARTATE AMINO TRANSFERASE 86 U/L (10-37); BILIRUBIN,DIRECT 0.2 MG/DL (0-0.3); BILIRUBIN,TOTAL 0.5 MG/DL (0.1-1.0); TOTAL PROTEIN 5.5 G/DL (6.4-8.2)
--- NOTE | 2023-07-08 21:53 | NUR ---
[facility] requesting we fax them all labs on patient, I will do this.
[2023-07-08 22:30] LABS: ALANINE AMINOTRANSFERASE 85 U/L (12-78); ALBUMIN 2.6 G/DL (3.4-5.0); ALBUMIN/GLOBULIN RATIO 0.8 (1.1-1.5); ALKALINE PHOSPHATASE 37 IU/L (46-116); ASPARTATE AMINO TRANSFERASE 83 U/L (10-37); BILIRUBIN,DIRECT 0.2 MG/DL (0-0.3); BILIRUBIN,TOTAL 0.4 MG/DL (0.1-1.0); TOTAL PROTEIN 5.7 G/DL (6.4-8.2)
[2023-07-09] MEDS: normal saline 1000ml 1,000 ML IV SCH ×2 (00:34→08:31)
[2023-07-09 02:00] VITALS: BP 102/78; PULSE 84; RESP 16; TEMP 98.6; O2SAT 96
[2023-07-09] MEDS: HYDROcodone/acetaminophen 10/325mg tab PO PRN ×2 (02:14→08:37)
[2023-07-09] MEDS: HALLS - SOOTHE MENTHOL 1.8 MG cough drop LOZENGE MM PRN ×2 (02:14→10:28)
[2023-07-09 02:31] LABS: BASOPHILS % (AUTO) 0.4 % (0-1); EOSINOPHILS # (AUTO) 0.3 X10'3 (0-0.9); EOSINOPHILS % (AUTO) 6.4 % (0-6); HEMATOCRIT 42.2 % (42.0-52.0); HEMOGLOBIN 14.5 g/dl (14.0-17.9); LYMPHOCYTES # (AUTO) 1.8 X10'3 (1.1-4.8); LYMPHOCYTES % (AUTO) 33.6 % (21-51); MEAN CORPUSCULAR HEMOGLOBIN 33.6 PG (27.0-31.0); MEAN CORPUSCULAR HGB CONC 34.4 g/dL (33.0-36.5); MEAN CORPUSCULAR VOLUME 97.5 FL (78-98); MEAN PLATELET VOLUME 8.1 FL (7.4-10.4); MONOCYTES # (AUTO) 0.5 X10'3 (0-0.9); MONOCYTES % (AUTO) 9.7 % (2-12); NEUTROPHILS # (AUTO) 2.6 X10'3 (1.8-7.7); NEUTROPHILS % (AUTO) 49.9 % (42-75); PLATELET COUNT 169 X10'3 (140-440); RED BLOOD COUNT 4.33 X10'6 (4.70-6.10); RED CELL DISTRIBUTION WIDTH 12.8 % (11.5-14.5); WHITE BLOOD COUNT 5.2 X10'3 (4.5-11.0)
[2023-07-09 02:41] LABS: ALANINE AMINOTRANSFERASE 85 U/L (12-78); ALBUMIN 2.6 G/DL (3.4-5.0); ALBUMIN/GLOBULIN RATIO 0.9 (1.1-1.5); ALKALINE PHOSPHATASE 38 IU/L (46-116); ASPARTATE AMINO TRANSFERASE 78 U/L (10-37); BILIRUBIN,DIRECT 0.1 MG/DL (0-0.3); BILIRUBIN,TOTAL 0.5 MG/DL (0.1-1.0); TOTAL PROTEIN 5.6 G/DL (6.4-8.2)
--- NOTE | 2023-07-09 05:20 | NUR ---
pt complaint of not being able to void much and still feels like he has to void. bladder scan (could only picture about 1/3 of bladder which showed 686ml.) locke cath placed. return of over 1000 ml of urine. pt tolerated procedure well. stated his bladder felt much better.
--- NOTE | 2023-07-09 06:46 | NUR ---
Patient in room PCU 3027. I have received report from Linda BABIN and had the opportunity to ask questions and assume patient care.
--- NOTE | 2023-07-09 06:47 | NUR ---
Problems reprioritized. Patient report given, questions answered & plan of care reviewed with MARY Elias.
[2023-07-09 07:00] VITALS: BP 123/78; PULSE 71; RESP 16; TEMP 98.7; O2SAT 99
[2023-07-09] MEDS ORDERED: naltrexone 50mg tablet PO SCH (08:00)
[2023-07-09 08:10] LABS: ALANINE AMINOTRANSFERASE 76 U/L (12-78); ALBUMIN 2.4 G/DL (3.4-5.0); ALBUMIN/GLOBULIN RATIO 0.9 (1.1-1.5); ALKALINE PHOSPHATASE 30 IU/L (46-116); ASPARTATE AMINO TRANSFERASE 70 U/L (10-37); BILIRUBIN,DIRECT 0.2 MG/DL (0-0.3); BILIRUBIN,TOTAL 0.5 MG/DL (0.1-1.0); TOTAL PROTEIN 5.2 G/DL (6.4-8.2)
[2023-07-09] MEDS: ESCITALOPRAM OXALATE 5 MG TABLET PO SCH (08:31)
[2023-07-09] MEDS: tamsulosin 0.4mg capsule PO SCH (08:31)
[2023-07-09] MEDS: apixaban 5mg tablet PO SCH (08:31)
[2023-07-09] MEDS: docusate sod 100mg capsule PO SCH (08:31)
[2023-07-09] MEDS: metoprolol succinate 25mg (24-HOUR) SR. Tablet PO SCH (08:31)
[2023-07-09] MEDS: pantoprazole 40mg Tablet.DR PO SCH (08:31)
[2023-07-09] MEDS: amiodarone 200mg tablet PO SCH (08:31)
[2023-07-09] MEDS: magnesium oxide 400mg tablet PO SCH (08:31)
--- NOTE | 2023-07-09 09:42 | NUR ---
Spoke with Dr Mason about naltrexone order and NS order. gave order to DC naltrexone and NS. Addendum: 07/09/23 at 0953 by Jada Rivera LVN, LVN Spoke to about patient's retention and need for a locke. gave order for chucky
[2023-07-09 10:55] LABS: ALANINE AMINOTRANSFERASE 78 U/L (12-78); ALBUMIN 2.5 G/DL (3.4-5.0); ALBUMIN/GLOBULIN RATIO 0.8 (1.1-1.5); ALKALINE PHOSPHATASE 37 IU/L (46-116); ASPARTATE AMINO TRANSFERASE 68 U/L (10-37); BILIRUBIN,TOTAL 0.5 MG/DL (0.1-1.0); TOTAL PROTEIN 5.5 G/DL (6.4-8.2)
[2023-07-09 10:57] LABS: BILIRUBIN,DIRECT 0.1 MG/DL (0-0.3)
[2023-07-09 11:00] VITALS: BP 110/70; PULSE 58; RESP 16; TEMP 98.2; O2SAT 96
--- NOTE | 2023-07-09 14:29 | NUR ---
PAGER ID: [phone] MESSAGE: [phone] Nicole Patient's CT results are back. Thank you Jada HERNANDEZ [phone]
--- NOTE | 2023-07-09 14:55 | NUR ---
Report called to [facility] nurse.
--- NOTE | 2023-07-09 15:05 | NUR ---
Patient discharged to [facility] with discharge instructions. No belongings noted. Escorted over to [facility] via wheel chair accompanied by [facility] transporter.
== END 2023-07-09 15:08 | DRG 817 ==
LOC: ER 09:17 → ED HOLD 07-07 01:16 → EDBEDREQ 07-07 01:40 → PCU 3S 07-07 07:40
PROVIDERS: ADMIT Family Medicine; ATTEND Family Medicine
DX: T45.0X2A Poisoning by antiallergic and antiemetic drugs, intentional self-harm, initial encounter (principal); N17.0 Acute kidney failure with tubular necrosis; I42.7 Cardiomyopathy due to drug and external agent; R16.0 Hepatomegaly, not elsewhere classified; I50.9 Heart failure, unspecified; I13.0 Hypertensive heart and chronic kidney disease with heart failure and stage 1 through stage 4 chronic kidney disease, or unspecified chronic kidney disease; R45.851 Suicidal ideations; I48.0 Paroxysmal atrial fibrillation; E86.1 Hypovolemia; S42.451A Displaced fracture of lateral condyle of right humerus, initial encounter for closed fracture; F10.10 Alcohol abuse, uncomplicated; Z20.822 Contact with and (suspected) exposure to COVID-19; R33.9 Retention of urine, unspecified; E78.5 Hyperlipidemia, unspecified; I44.4 Left anterior fascicular block; N13.9 Obstructive and reflux uropathy, unspecified; F32.9 Major depressive disorder, single episode, unspecified; K73.9 Chronic hepatitis, unspecified; N18.9 Chronic kidney disease, unspecified; R74.01 Elevation of levels of liver transaminase levels; M54.50 Low back pain, unspecified; R51.9 Headache, unspecified; W18.39XA Other fall on same level, initial encounter; Y93.89 Activity, other specified; Y99.8 Other external cause status; Z79.01 Long term (current) use of anticoagulants; Z80.3 Family history of malignant neoplasm of breast; Z82.49 Family history of ischemic heart disease and other diseases of the circulatory system; Y92.89 Other specified places as the place of occurrence of the external cause
CPT/HCPCS: 36415; 70450; 71045; 72100; 72220; 73090; 73200; 76700; 80053; 80061; 80076; 80305; 80320; 80329; 81001; 83036; 83690; 83735; 83880; 84100; 84443; 84484; 85025; 85379; 85610; 85730; 87811; 93306; 93971; 94760; 97161; 97530; 99285; A4314; G0378; J3475; J7030

== ENCOUNTER 2023-08-15 07:11 | Emergency (ER) | payer MEDICAID ==
[~2023-08-15] VITALS: Ht 177.8 cm; Wt 72.0 kg
[~2023-08-15 07:11] MED LIST changes: -ATOR10TA70 PO; +ESCI-8 PO; +FLO0.4C PO; -FOLI1TAB27 PO; -FURO40TA4 PO; +MELA3TAB39 PO; -METO-395 PO; +METO25CA PO; -NAPR-232 PO
[2023-08-15 07:27] VITALS: BP 126/89; PULSE 69; RESP 15; O2SAT 97
[2023-08-15 10:07] VITALS: TEMP 97.7
== END 2023-08-15 10:40 ==
LOC: ER 07:12
DX: F10.20 Alcohol dependence, uncomplicated (principal); I50.9 Heart failure, unspecified; Z79.899 Other long term (current) drug therapy
CPT/HCPCS: 99281

== ENCOUNTER 2023-11-30 17:29 | Emergency (ER) | payer MEDICAID ==
[~2023-11-30] VITALS: Ht 177.8 cm; Wt 85.3 kg
[2023-11-30 17:33] VITALS: TEMP 97.2
[2023-11-30 17:47] LABS: BASOPHILS % (AUTO) 0.7 % (0-1); EOSINOPHILS # (AUTO) 0.2 X10'3 (0-0.9); EOSINOPHILS % (AUTO) 4.4 % (0-6); HEMATOCRIT 46.3 % (42.0-52.0); HEMOGLOBIN 16.4 g/dl (14.0-17.9); LYMPHOCYTES # (AUTO) 2.6 X10'3 (1.1-4.8); LYMPHOCYTES % (AUTO) 47.1 % (21-51); MEAN CORPUSCULAR HEMOGLOBIN 33.9 PG (27.0-31.0); MEAN CORPUSCULAR HGB CONC 35.5 g/dL (33.0-36.5); MEAN CORPUSCULAR VOLUME 95.6 FL (78-98); MEAN PLATELET VOLUME 7.9 FL (7.4-10.4); MONOCYTES # (AUTO) 0.5 X10'3 (0-0.9); MONOCYTES % (AUTO) 9.7 % (2-12); NEUTROPHILS # (AUTO) 2.1 X10'3 (1.8-7.7); NEUTROPHILS % (AUTO) 38.1 % (42-75); PLATELET COUNT 195 X10'3 (140-440); RED BLOOD COUNT 4.85 X10'6 (4.70-6.10); RED CELL DISTRIBUTION WIDTH 12.9 % (11.5-14.5); WHITE BLOOD COUNT 5.6 X10'3 (4.5-11.0)
[2023-11-30 17:57] VITALS: BP 116/80; PULSE 57; RESP 17; O2SAT 96
[2023-11-30] MEDS ORDERED: aspirin 81mg tab.chew PO ONE (18:00)
[2023-11-30 18:11] LABS: ALBUMIN 3.7 G/DL (3.4-5.0); ANION GAP 5 (8-16); BLOOD UREA NITROGEN 27 MG/DL (7-18); BUN/CREATININE RATIO 22.5 (10.0-20.0); CALCIUM 9.1 MG/DL (8.5-10.1); CHLORIDE 105 MMOL/L (99-107); GLUCOSE 95 MG/DL (70-104); POTASSIUM 4.3 MMOL/L (3.5-5.1); PRO BRAIN NATRIURETIC PEPTIDE 104 PG/ML (0-125); SODIUM 140 MMOL/L (135-145); TOTAL CARBON DIOXIDE 29.7 MMOL/L (24-32); eCRCL 69 ML/MIN; eGFR 62 ML/MIN
== END 2023-11-30 19:49 | disposition left against medical advice (07) ==
LOC: ER 17:30
DX: R07.89 Other chest pain (principal); I48.91 Unspecified atrial fibrillation; I50.9 Heart failure, unspecified; Z72.89 Other problems related to lifestyle
CPT/HCPCS: 36415; 71045; 80048; 83880; 84484; 85025; 93005; 99285

== ENCOUNTER 2024-05-11 21:48 | Emergency (ER) | payer MEDICAID ==
[~2024-05-11] VITALS: Ht 177.8 cm; Wt 81.8 kg
[2024-05-11 22:19] VITALS: BP 99/61; PULSE 60; RESP 14; TEMP 98; O2SAT 99
[2024-05-12] MEDS: normal saline 1000ml 1,000 ML IV ONE (00:38)
[2024-05-12] MEDS: acetaminophen 325mg tablet PO ONE (01:07)
== END 2024-05-12 01:36 | disposition home or self-care (01) ==
LOC: ER 21:49
DX: F10.129 Alcohol abuse with intoxication, unspecified (principal); R11.0 Nausea; R47.81 Slurred speech; I48.91 Unspecified atrial fibrillation; I50.9 Heart failure, unspecified; Z79.899 Other long term (current) drug therapy; Z60.2 Problems related to living alone; Z72.89 Other problems related to lifestyle
CPT/HCPCS: 96360; 99283; J7030

== ENCOUNTER 2024-10-15 10:20 | Inpatient (IN) | payer MEDICAID ==
[~2024-10-15] VITALS: Ht 179.1 cm; Wt 77.5 kg
[2024-10-15 11:15] LABS: BILIRUBIN,URINE NEGATIVE (Neg); CLARITY,URINE CLEAR (Clear); COLOR,URINE STRAW (Yellow); GLUCOSE, URINE NEGATIVE (Neg); KETONES,URINE NEGATIVE (Neg); LEUKOCYTE ESTERASE ,URINE NEGATIVE (Neg); NITRITES, URINE NEGATIVE (Neg); OCCULT BLOOD,URINE NEGATIVE (Neg); PROTEIN,URINE NEGATIVE (Neg); UROBILINOGEN,URINE 0.2 E.U/dL (0.2-1.0)
[2024-10-15 11:17] LABS: UA COLLECTION TYPE VOIDED
[2024-10-15 11:23] LABS: URINE AMPHETAMINE SCREEN NEGATIVE (Neg); URINE BARBITUATE SCREEN NEGATIVE (Neg); URINE BENZODIAZEPINES SCREEN NEGATIVE (Neg); URINE CANNABINOID SCREEN NEGATIVE (Neg); URINE COCAINE SCREEN NEGATIVE (Neg); URINE METHADONE SCREEN NEGATIVE (Neg); URINE OPIATE SCREEN NEGATIVE (Neg); URINE PHENCYCLIDINE SCREEN NEGATIVE (Neg)
[2024-10-15 11:40] LABS: BASOPHILS % (AUTO) 0.7 % (0-1); EOSINOPHILS # (AUTO) 0.1 X10'3 (0-0.9); EOSINOPHILS % (AUTO) 1.9 % (0-6); HEMATOCRIT 43.4 % (42.0-52.0); HEMOGLOBIN 15.5 g/dl (14.0-17.9); LYMPHOCYTES # (AUTO) 1.7 X10'3 (1.1-4.8); LYMPHOCYTES % (AUTO) 39.1 % (21-51); MEAN CORPUSCULAR HEMOGLOBIN 34.4 PG (27.0-31.0); MEAN CORPUSCULAR HGB CONC 35.7 g/dL (33.0-36.5); MEAN CORPUSCULAR VOLUME 96.4 FL (78-98); MEAN PLATELET VOLUME 8.6 FL (7.4-10.4); MONOCYTES # (AUTO) 0.3 X10'3 (0-0.9); MONOCYTES % (AUTO) 7.7 % (2-12); NEUTROPHILS # (AUTO) 2.2 X10'3 (1.8-7.7); NEUTROPHILS % (AUTO) 50.6 % (42-75); PLATELET COUNT 192 X10'3 (140-440); RED CELL DISTRIBUTION WIDTH 12.6 % (11.5-14.5); WHITE BLOOD COUNT 4.3 X10'3 (4.5-11.0)
[2024-10-15 12:04] LABS: ALBUMIN 4.1 G/DL (3.4-5.0); ANION GAP 9 (8-16); BLOOD UREA NITROGEN 19 MG/DL (7-18); BUN/CREATININE RATIO 18.4 (10.0-20.0); CALCIUM 9.5 MG/DL (8.5-10.1); CHLORIDE 105 MMOL/L (99-107); CREATININE 1.03 MG/DL (0.60-1.10); ETHANOL < 10 MG/DL (<10); GLUCOSE 95 MG/DL (70-104); POTASSIUM 4.5 MMOL/L (3.5-5.1); SODIUM 142 MMOL/L (135-145); THYROID STIMULATING HORMONE 1.19 ulU/ml (0.34-4.50); TOTAL CARBON DIOXIDE 27.9 MMOL/L (24-32); eCRCL 80 ML/MIN; eGFR 74 ML/MIN
[2024-10-15] MEDS ORDERED: NALT50TA5 PO (12:37)
[2024-10-15] MEDS ORDERED: VILO150C PO (12:37)
[2024-10-15] MEDS ORDERED: VILA40TA2 PO (12:37)
[2024-10-15] MEDS ORDERED: TRAZ-256 PO (12:37)
[2024-10-15] MEDS ORDERED: CARI4.5C PO (12:37)
[2024-10-15] MEDS ORDERED: FLO0.4C PO (15:43)
[2024-10-15] MEDS ORDERED: AMIO200T72 PO (15:43)
[2024-10-15] MEDS ORDERED: MELA3CAP2 PO (15:43)
[2024-10-15] MEDS: ondansetron 4mg rapidly disintigrating tab PO PRN (17:49)
[2024-10-15] MEDS: Melatonin 3mg tablet PO SCH (21:31)
[2024-10-15] MEDS: traZODone 50mg tablet PO SCH (21:32)
[2024-10-16] MEDS: naltrexone 50mg tablet PO SCH (08:00)
[2024-10-16] MEDS: tamsulosin 0.4mg capsule PO SCH (08:19)
[2024-10-16] MEDS: CARIPRAZINE HYDROCHLORIDE 4.5 MG PO SCH (08:22)
[2024-10-16] MEDS: VILOXAZINE HCL PO SCH (08:23)
[2024-10-16 15:17] VITALS: BP 99/59; PULSE 55; RESP 20; TEMP 97.4; O2SAT 97
[2024-10-16 15:28] VITALS: RESP 20; O2SAT 97
[2024-10-16] MEDS ORDERED: loperamide 2mg capsule PO PRN (15:30)
[2024-10-16] MEDS ORDERED: acetaminophen 325mg tablet PO PRN ×2 (15:30)
[2024-10-16] MEDS ORDERED: magnesium hydroxide 30ml (MOM) UD suspension PO PRN (15:30)
[2024-10-16] MEDS ORDERED: mag hydrox/Alum hydrox/simeth 30ml oral suspension PO PRN (15:30)
[2024-10-16 19:00] VITALS: RESP 20; O2SAT 97
[2024-10-16 20:00] VITALS: BP 101/66; PULSE 60; RESP 20; TEMP 97.8; O2SAT 97
[2024-10-17 07:00] VITALS: BP 102/66; PULSE 65; RESP 14; TEMP 97.2; O2SAT 98
[2024-10-17 07:58] LABS: HEMOGLOBIN A1C 4.9 % (4.5-6.2)
[2024-10-17 08:05] LABS: CHOL/HDL RATIO 4.2 (0.00-4.99); CHOLESTEROL 196 MG/DL (0-200); HDL CHOLESTEROL 47 MG/DL (35-60); LDL CHOLESTEROL 134 MG/DL (50-100); THYROID STIMULATING HORMONE 0.98 ulU/ml (0.34-4.50); TRIGLYCERIDES 55 MG/DL (20-135)
[2024-10-17 12:53] LABS: ALANINE AMINOTRANSFERASE 23 U/L (12-78); ALBUMIN 3.8 G/DL (3.4-5.0); ALBUMIN/GLOBULIN RATIO 1.2 (1.1-1.5); ALKALINE PHOSPHATASE 55 IU/L (46-116); ANION GAP 6 (8-16); ASPARTATE AMINO TRANSFERASE 9 U/L (10-37); BILIRUBIN,TOTAL 0.7 MG/DL (0.1-1.0); BLOOD UREA NITROGEN 22 MG/DL (7-18); BUN/CREATININE RATIO 18.8 (10.0-20.0); CALCIUM 9.1 MG/DL (8.5-10.1); CHLORIDE 107 MMOL/L (99-107); CREATININE 1.17 MG/DL (0.60-1.10); GLUCOSE 90 MG/DL (70-104); POTASSIUM 4.4 MMOL/L (3.5-5.1); SODIUM 142 MMOL/L (135-145); TOTAL CARBON DIOXIDE 29.3 MMOL/L (24-32); eCRCL 71 ML/MIN; eGFR 64 ML/MIN
[2024-10-17 19:00] VITALS: RESP 16; O2SAT 97
[2024-10-17 19:36] VITALS: BP 98/67; PULSE 54; RESP 16; TEMP 97.2; O2SAT 97
[2024-10-17] MEDS: traZODone 50mg tablet PO PRN (20:28)
[2024-10-18 07:00] VITALS: BP 96/67; PULSE 67; RESP 16; TEMP 97.8; O2SAT 98
[2024-10-18] MEDS: atorvastatin 20mg tablet PO SCH (07:47)
[2024-10-18] MEDS: ESCITALOPRAM 10 mg tablet 10 MG TABLET PO SCH (11:34)
[2024-10-18 19:00] VITALS: RESP 16; O2SAT 98
[2024-10-18 20:00] VITALS: BP 108/71; PULSE 64; RESP 16; TEMP 97.4; O2SAT 98
[2024-10-18] MEDS: traZODone 50mg tablet PO ONE (20:38)
[2024-10-18] MEDS: traZODone 150mg tablet PO ONE (21:28)
[2024-10-19 07:09] VITALS: RESP 16; O2SAT 98
[2024-10-19 08:00] VITALS: BP 91/54; PULSE 86; RESP 20; TEMP 98; O2SAT 97
[2024-10-19 19:00] VITALS: RESP 18; O2SAT 98
[2024-10-19 20:02] VITALS: BP 107/72; PULSE 57; RESP 20; TEMP 98.6; O2SAT 96
[2024-10-19] MEDS: Melatonin 3mg tablet PO SCH (20:24)
[2024-10-19] MEDS: traZODone 50mg tablet PO SCH (20:25)
[2024-10-20 06:38] VITALS: RESP 16; O2SAT 98
[2024-10-20 08:58] VITALS: BP 103/68; PULSE 57; RESP 18; TEMP 97.1; O2SAT 99
[2024-10-20 19:00] VITALS: BP 111/63; PULSE 60; RESP 14; TEMP 97; O2SAT 98
[2024-10-20] MEDS: traZODone 50mg tablet PO SCH (20:50)
[2024-10-21 07:00] VITALS: RESP 14; O2SAT 98
[2024-10-21 08:00] VITALS: BP 90/63; PULSE 64; RESP 14; TEMP 97.7; O2SAT 98
[2024-10-21] MEDS ORDERED: NALT50TA5 PO (12:55)
[2024-10-21] MEDS ORDERED: TRAZ-251 PO (12:55)
[2024-10-21] MEDS ORDERED: ATOR20TA66 PO (12:55)
== END 2024-10-21 14:50 | disposition home or self-care (01) | DRG 750 ==
LOC: ER 10:21 → ED HOLD 10-16 13:45 → ADULT MH 10-16 14:52
PROVIDERS: ADMIT Psychiatry & Neurology Psychiatry; ATTEND Psychiatry & Neurology Psychiatry
PROC: GZHZZZZ Group Psychotherapy (ICD-10-PCS; principal; 2024-10-17)
PROC: GZ51ZZZ Individual Psychotherapy, Behavioral (ICD-10-PCS; 2024-10-17)
DX: F20.9 Schizophrenia, unspecified (principal); I42.9 Cardiomyopathy, unspecified; R45.851 Suicidal ideations; I50.9 Heart failure, unspecified; Z20.822 Contact with and (suspected) exposure to COVID-19; F32.9 Major depressive disorder, single episode, unspecified; F90.9 Attention-deficit hyperactivity disorder, unspecified type; I48.91 Unspecified atrial fibrillation
CPT/HCPCS: 36415; 80048; 80053; 80061; 80305; 80320; 81003; 83036; 84443; 85025; 87081; 87811; 99285

== ENCOUNTER 2025-04-19 03:33 | Emergency (ER) | payer MEDICAID ==
[~2025-04-19] VITALS: Ht 177.8 cm; Wt 78.8 kg
[~2025-04-19 03:33] MED LIST changes: -AMI200T PO; -APIX5TAB3 PO; +ATOR20TA66 PO; +CARI4.5C PO; -ESCI-8 PO; -FLO0.4C PO; +MELA3CAP2 PO; -MELA3TAB39 PO; -METO25CA PO; +NALT50TA5 PO; +TAMS-55 PO; +TRAZ-251 PO; +VILA40TA2 PO
[2025-04-19 03:45] VITALS: BP 111/80; PULSE 57; RESP 15; O2SAT 98
[2025-04-19] MEDS ORDERED: dextrose 50%-water 50ml dispensing syringe IV ONE (04:00)
[2025-04-19] MEDS ORDERED: CEPH-585 PO (04:06)
--- NOTE | 2025-04-19 04:07 | Physician Documentation ---
History of Present Illness ~ Chief Complaint: Wound Stated Complaint: BED SORE Time Seen by MD: 03:58 Primary Medical Doctor: [facility] DR BRITO HPI Patient presents to the emergency room with chronic wound over the past year that goes away and comes back every now and again. He states it itches and he has been putting mupirocin on it. Tetanus within 5 years?: Yes Medication Reconciliation Allergies: Coded Allergies: No Known Allergies (Unverified , 04/19/25) Scheduled Atorvastatin Calcium (Atorvastatin Calcium), 40 MG PO DAILY Cariprazine Hydrochloride (Vraylar), 1 CAP PO DAILY, (Reported) Melatonin (Melatonin), 2 CAP PO HS, (Reported) Naltrexone Hcl (Naltrexone Hcl), 50 MG PO DAILY Tamsulosin Hcl* (Flomax*), 1 CAP PO DAILY, (Reported) Trazodone HCl (Trazodone HCl), 200 MG PO HS Vilazodone HCl (Vilazodone HCl), 1 TAB PO DAILY, (Reported) Past Medical History Past Medical History: Atrial Fibrillation, Congestive Heart Failure, Herpes Zoster Past Surgical History: noncontributory Patient History: FH: breast cancer in first degree relative MOTHER, , Onset:Unknown FHx: heart disease FATHER, , Onset:60 years & older Alcohol Use: Occasionally Drug Use: none Lives with: Family, Alone Lives In: Home, Other Occupation: employed, other Review of Systems ROS All review of systems negative except as per HPI Physical Exam Vital Signs: Temperature: 97.9, Source: Oral, Heart Rate: 57, Respiratory Rate: 15, BP: 111/80, Pulse Oximetry: 98, Weight: 78.770 Oxygen Flow Rate: 0 Physical Exam General: Patient is awake, alert, oriented x4 in no acute distress and well appearing.~ Head: Normocephalic and atraumatic. Eyes: Conjunctival normal. EOMI. PERRL. ENT: Mucous membranes moist. Neck: Supple, trachea is midline. Chest: Clear to auscultation bilaterally without rales, rhonchi, or wheezes. There is no accessory muscle use or retractions. Cardiac: RRR without murmurs, gallops, or rubs. : 2 x 2 cm fungating lesion to patient's right upper sacrum with no cellulitis Progress Results/Orders Results/Orders Orders - SAV LOERA MD Dextrose 50%-Water (Dextrose 50%-Water S (04/19/25 04:00) Vital Signs 04/19/25 03:45 Temp 97.9 Pulse 57 Resp 15 B/P (MAP) 111/80 Pulse Ox 98 O2 Flow Rate 0 Medical Decision Making Findings Patient presents to the emergency room with wound to his upper right sacral area as per HPI. Differentials include but are not limited to abscess, cellulitis, condyloma, herpes. Physical exam is reassuring for no sepsis and he had not feel he requires incision and drainage. I strongly suspect viral etiology and this was discussed with patient although he states that this was not it and that has shows an infection. I have instructed him that he needs to follow up with his doctors this could represent a host of different lesions including skin can cer Departure Disposition: 01 HOME / SELF CARE / HOMELESS Impression: Primary Impression: Wound Condition: Stable Discharge Instructions: Cellulitis, Adult, [id number] Additional Instructions: He has been unusual wound that has not. Classical infection. I suspect possible viral infection or possibly cancer. You need to follow up with your doctor for biopsy. Referrals: NO PRIMARY CARE PROVIDER (PCP) Prescriptions Cephalexin*Monohydrate* (Keflex*) 500 Mg Capsule 1 CAP PO Q12H for 10 Days, #20 CAP Prov: SAV LOERA MD 04/19/25 Education Educated: Patient Educated regarding: diagnosis, treatment, need for follow up Signature Scribe Signature: no scribe Attestation: The note accurately reflects work and decisions made by me.Sav Loera MD 04/19/25 04:07 SAV LOERA MD Apr 19, 2025 04:07
[2025-04-19 18:38] VITALS: TEMP 97.9
== END 2025-04-19 05:00 | disposition home or self-care (01) ==
LOC: ER 03:34
DX: S30.91XA Unspecified superficial injury of lower back and pelvis, initial encounter (principal); I48.91 Unspecified atrial fibrillation; I50.9 Heart failure, unspecified; X58.XXXA Exposure to other specified factors, initial encounter; Y93.89 Activity, other specified; Y92.89 Other specified places as the place of occurrence of the external cause; Y99.8 Other external cause status
CPT/HCPCS: 99284; A6212; A6449